=== PATIENT | male | born 1950 ===

== ENCOUNTER 2019-09-09 09:11 | Emergency (ER) | payer OTHER, MEDICARE, SELFPAY ==
[2019-09-09] VITALS (10 sets, daily range): BP systolic 132–169; BP diastolic 64–97; PULSE 52–114; RESP 12–32; TEMP 36.8; O2SAT 97–100
--- NOTE | 2019-09-09 09:24 | DI.RAD.S_ITS ---
PROCEDURE: XR CHEST 1V INDICATIONS: chest pain TECHNIQUE: One view of the chest was acquired. COMPARISON: None. FINDINGS: Surgical changes and devices: None. Lungs and pleura: Lungs are clear. No pleural effusions or pneumothorax. Mediastinum: Mediastinal contours appear normal. Heart size is normal. Bones and chest wall: No suspicious bony lesions. Overlying soft tissues appear unremarkable. IMPRESSION: No acute process. Dictated by: Luisana Whaley M.D. on 09/09/2019 at 9:01 Approved by: Luisana Whaley M.D. on 09/09/2019 at 9:02
--- NOTE | 2019-09-09 09:31 | ED_ITS ---
HPI - Arrhythmia/Palpitations General Chief Complaint: Arrhythmia/Palpitations Stated Complaint: Concerns about blood pressure,feeling light headed Time Seen by Provider: 09/09/19 09:24 Source: patient Mode of arrival: Ambulatory Limitations: no limitations History of Present Illness HPI narrative: 69-year-old male arrived to the emergency department by private vehicle for concerns not feeling very well. He states that last evening he started to feel this way. No chest pain no palpitations no shortness of breath. Did eat dinner last evening without any change in his symptoms. Went to bed last evening. Woke up this morning. States that he felt very uneasy. He used his home blood pressure cuff. He states that his systolic blood pressures were in the 80s and his heart rate was in the 160s. He was not having any palpitations or chest pain at the time. Did drive to the emergency department. While he was on the [employer] on the way to the department he stated that he became somewhat lightheaded while walking up some stairs. Upon arrival says he feels better than when he did this morning however not at his normal. Related Data Allergies Allergy/AdvReac Type Severity Reaction Status Date / Time tamsulosin AdvReac Mild Fatigued Verified 09/09/19 09:23 Review of Systems Constitutional Constitutional: Denies fever(s) and Denies headache(s) ENT Ears, Nose, Mouth, and Throat: Denies vertigo, Denies dizziness, Denies headache(s) and Reports disequilibrium Cardiovascular Cardiovascular: Denies chest pain, Denies diaphoresis, Denies syncope, Denies palpitations, Denies dyspnea and Denies dyspnea on exertion Respiratory Respiratory: Denies dyspnea and Denies dyspnea on exertion Gastrointestinal Gastrointestinal: Denies abdominal pain, Denies nausea and Denies vomiting Genitourinary Genitourinary: Denies dysuria Integumentary/Breasts Skin/Breast: Denies lesions and Denies rash Neurologic Neurologic: Denies behavioral changes, Denies confusion, Denies vertigo, Denies dizziness, Denies syncope, Denies headache(s) and Reports disequilibrium Psychiatric Psychiatric: Denies behavioral changes and Denies confusion Endocrine Endocrine: Denies palpitations Hematologic/Lymphatic Hematologic/Lymphatic: Denies easy bleeding and Denies easy bruising Patient History Medical History Class 1 obesity (06/25/15) Hyperlipidemia (06/25/15) Social History Smoking Status: Never smoker Smoking Status: Never smoker alcohol intake frequency: 0-2 drinks per day Substance Use Type: does not use Exam Initial Vital Signs Initial Vital Signs: Vital Signs Temperature 98.2 F 09/09/19 09:15 Pulse Rate 76 09/09/19 09:15 Respiratory Rate 18 09/09/19 09:15 Blood Pressure 169/77 H 09/09/19 09:15 Pulse Oximetry 100 09/09/19 09:15 Const General: cooperative, comfortable and well developed Limitations: mental status not altered HENMT Head: normal to inspection and normocephalic Resp Effort & Inspection: normal respiratory effort Auscultation: clear to auscultation bilaterally Cardio Rate: regular rate Rhythm: regular rhythm GI Inspection: non-distended Palpation: soft and No firm Skin Lesions: no lesions Rashes: no rashes Neuro General: alert, awake and oriented x3 Cognition: normal cognition Speech: speech normal Extrem General: normal to inspection and capillary refill normal Psych Appearance: grossly normal and well kempt Scores GCS Al coma scale eye opening: Spontaneous Al coma scale verbal response: Orientated Al coma scale motor response: Obey commands Al coma scale total score: 15 Course Orders Ordered: ED Orders 09/09/19 09:24 XR chest 1V Stat EKG-12 Lead Stat 09/09/19 09:25 Complete Blood Count AUTO DIFF Stat Comprehensive Metabolic Panel Stat Lipase Stat Partial Thromboplastin Time Stat Prothrombin Time INR Stat Troponin & CK Cardiac Panel Stat 09/09/19 11:40 Troponin I Stat Heparin Sodium/Dextrose (Heparin Drip) 25,000 unit in 500 mls @ 20 mls/hr IV CONT SHILO; Protocol Discontinued Medications Aspirin (Aspirin Chew) 324 mg PO NOW ONE Stop: 09/09/19 10:51 Last Admin: 09/09/19 11:02 Dose: 243 mg Documented by: DAGO Heparin Sodium (Porcine) (Heparin) 5,000 unit IV NOW ONE Stop: 09/09/19 12:24 Vital Signs Vital signs: Vital Signs - 8 hr 09/09/19 09:15 09/09/19 09:30 09/09/19 11:30 Temperature 98.2 F Pulse Rate 76 68 53 L Respiratory Rate 18 18 17 Blood Pressure 169/77 H Blood Pressure [Right Arm] 155/65 H 137/65 Pulse Oximetry 100 99 MDM - Arrhythmia/Palpitations Lab Data Attestation: I reviewed the patient's lab results. Result diagrams: 09/09/19 09:25 09/09/19 09:25 Labs: Lab Results 09/09/19 09/09/19 09/09/19 Range/Units 09:25 09:25 09:25 WBC 7.1 (4.5-11.0) X10^3/uL RBC 4.89 (4.5-5.9) X10^6/uL Hgb 15.4 (13.5-17.5) g/dL Hct 46.1 (41-53) % MCV 94.3 (80-100) fL MCH 31.4 (26-34) PG MCHC 33.3 (30-36) % RDW 14.4 (11.6-14.8) % Plt Count 254 (150-400) X10^3/uL Neut % (Auto) 75.7 H (50-75) % Lymph % (Auto) 14.2 L (25-40) % Stephens % (Auto) 9.5 (3-14) % Eos % (Auto) 0.4 L (2-4) % Baso % (Auto) 0.2 (0-2) % Neut # (Auto) 5300 (9098-9531) /uL Lymph # (Auto) 1000 L (6071-2440) /uL Stephens # (Auto) 700 (0-900) /uL Eos # (Auto) 0 (0-450) /uL Baso # (Auto) 0 (0-100) /uL PT 11.8 (10.1-12.7) SECONDS INR 1.0 (0.9-1.3) APTT 33 (26.4-36.2) SECONDS Sodium 139 (137-145) mmol/L Potassium 4.4 (3.4-5.1) mmol/L Chloride 103 (98-107) mmol/L Carbon Dioxide 25 (22-32) mmol/L BUN 12 (9-20) mg/dL Creatinine 1.10 (0.66-1.25) mg/dL Estimated GFR > 60.0 (>60) mL/min BUN/Creatinine Ratio 10.9 (6-22) Glucose 105 (80-110) mg/dL Calcium 9.7 (8.4-10.2) mg/dL Total Bilirubin 0.9 (0.2-1.3) mg/dL AST 29 (17-59) IU/L ALT 27 (<50) IU/L Alkaline Phosphatase 70 (38-126) U/L Total Creatine Kinase 104 (55-170) U/L CK-MB (CK-2) 0.75 (<2.37) ng/mL CK-MB (CK-2) Rel Index 0.7 L (1.5-5.0) % Troponin I 0.030 (0.01-0.034) ng/mL Total Protein 8.4 H (6.3-8.2) g/dL Albumin 4.7 (3.5-5.0) g/dL Globulin 3.7 (1.7-4.1) g/dL Albumin/Globulin Ratio 1.3 (1.0-2.8) Lipase 79 (23-300) U/L 09/09/19 Range/Units 11:40 WBC (4.5-11.0) X10^3/uL RBC (4.5-5.9) X10^6/uL Hgb (13.5-17.5) g/dL Hct (41-53) % MCV (80-100) fL MCH (26-34) PG MCHC (30-36) % RDW (11.6-14.8) % Plt Count (150-400) X10^3/uL Neut % (Auto) (50-75) % Lymph % (Auto) (25-40) % Stephens % (Auto) (3-14) % Eos % (Auto) (2-4) % Baso % (Auto) (0-2) % Neut # (Auto) (9412-4419) /uL Lymph # (Auto) (8668-2551) /uL Stephens # (Auto) (0-900) /uL Eos # (Auto) (0-450) /uL Baso # (Auto) (0-100) /uL PT (10.1-12.7) SECONDS INR (0.9-1.3) APTT (26.4-36.2) SECONDS Sodium (137-145) mmol/L Potassium (3.4-5.1) mmol/L Chloride (98-107) mmol/L Carbon Dioxide (22-32) mmol/L BUN (9-20) mg/dL Creatinine (0.66-1.25) mg/dL Estimated GFR (>60) mL/min BUN/Creatinine Ratio (6-22) Glucose (80-110) mg/dL Calcium (8.4-10.2) mg/dL Total Bilirubin (0.2-1.3) mg/dL AST (17-59) IU/L ALT (<50) IU/L Alkaline Phosphatase (38-126) U/L Total Creatine Kinase (55-170) U/L CK-MB (CK-2) (<2.37) ng/mL CK-MB (CK-2) Rel Index (1.5-5.0) % Troponin I 0.047 H (0.01-0.034) ng/mL Total Protein (6.3-8.2) g/dL Albumin (3.5-5.0) g/dL Globulin (1.7-4.1) g/dL Albumin/Globulin Ratio (1.0-2.8) Lipase (23-300) U/L Imaging Data Chest x-ray: Radiologist's Impresson: [place] [address] XRay Report Signed Patient: Colleen Cunningham#: [id number] : 9Acct:[id number] Age/Sex: 69 / MDate of Service: 09/09/19 Loc: ED Accession Number: [id number] Procedure: XR chest 1V Ordering Provider: Shakeel Gasca D.O. PROCEDURE: XR CHEST 1V INDICATIONS: chest pain TECHNIQUE: One view of the chest was acquired. COMPARISON: None. FINDINGS: Surgical changes and devices: None. Lungs and pleura: Lungs are clear. No pleural effusions or pneumothorax. Mediastinum: Mediastinal contours appear normal. Heart size is normal. Bones and chest wall: No suspicious bony lesions. Overlying soft tissues appear unremarkable. IMPRESSION: No acute process. Dictated by: Luisana Whaley M.D. on 09/09/2019 at 9:01 Approved by: Luisana Whaley M.D. on 09/09/2019 at 9:02 ECG Data Attestation: I personally reviewed and interpreted this ECG as follows: Prior ECG tracings: not available for review Interpretation: Sinus rhythm Ventricular rate is 73 Occasional PACs Normal QRS Normal QTC No ST T wave changes MDM Narrative Medical decision making narrative: Patient has been in sinus rhythm since arrival to the emergency department. His blood pressure is also unremarkable. Has generalized fatigue and not feeling well. Not in atrial fibrillation. Chest x-ray is unremarkable. Initial EKG unremarkable. Initial troponin detectable but negative. 2 hour repeat positive. Patient has been given aspirin. Heparin started. Discussed the case with Dr. Washburn with cardiology at [facility] who agrees to see the patient upon transfer. Discussed case with Dr. Ballard with Internal Medicine who accepts the patient in transfer. Patient is stable for transport. I did discuss with him the expressed understanding and agreement Discharge Plan Departure Patient Disposition: [facility] Clinical Impression: Non-ST elevation [place] (NSTEMI)
[2019-09-09 09:34] LABS: Add Manual Diff / Slide Review NO; Basophils Absolute Auto 0 /uL (0-100); Basophils Percent Auto 0.2 % (0-2); Eosinophils Absolute Auto 0 /uL (0-450); Eosinophils Percent Auto 0.4 % (2-4); Hematocrit 46.1 % (41-53); Hemoglobin 15.4 g/dL (13.5-17.5); Lymphocytes Absolute Auto 1000 /uL (1100-4500); Lymphocytes Percent Auto 14.2 % (25-40); Mean Corpuscular HGB Conc 33.3 % (30-36); Mean Corpuscular Hemoglobin 31.4 PG (26-34); Mean Corpuscular Volume 94.3 fL (80-100); Monocytes Absolute Auto 700 /uL (0-900); Monocytes Percent Auto 9.5 % (3-14); Neutrophils Absolute Auto 5300 /uL (1500-7000); Neutrophils Percent Auto 75.7 % (50-75); Platelet Count 254 X10^3/uL (150-400); Red Blood Cell Count 4.89 X10^6/uL (4.5-5.9); Red Cell Distribution Width 14.4 % (11.6-14.8); White Blood Cell Count 7.1 X10^3/uL (4.5-11.0)
[2019-09-09 09:43] LABS: PTT Partial Thromboplastin Tim 33 SECONDS (26.4-36.2)
[2019-09-09 09:44] LABS: Alanine Aminotransferase 27 IU/L (<50); Albumin 4.7 g/dL (3.5-5.0); Albumin Globulin Ratio 1.3 (1.0-2.8); Alkaline Phosphatase 70 U/L (38-126); Aspartate Aminotransferase 29 IU/L (17-59); BUN Creatinine Ratio 10.9 (6-22); Bilirubin Total 0.9 mg/dL (0.2-1.3); Blood Urea Nitrogen 12 mg/dL (9-20); Calcium 9.7 mg/dL (8.4-10.2); Carbon Dioxide 25 mmol/L (22-32); Chloride 103 mmol/L (98-107); Creatine Kinase 104 U/L (55-170); Estimated Glomerular Filt Rate > 60.0 mL/min (>60); Globulin 3.7 g/dL (1.7-4.1); Glucose 105 mg/dL (80-110); Lipase 79 U/L (23-300); Potassium 4.4 mmol/L (3.4-5.1); Prothrombin Time 11.8 SECONDS (10.1-12.7); Sodium 139 mmol/L (137-145); Total Protein 8.4 g/dL (6.3-8.2)
--- NOTE | 2019-09-09 09:44 | PC.NURSE ---
Pt shows me home bp monitor w/ multiple low bps (80s-90s systolic) and high heart rate (160s). Pt states during that time he felt funny Pt did take his bp medication this morning. States he feels well at this time. Upon arrival and placed on monitor, pt appeared to be in afib w/ controlled rate. Is now in NSR w/o ectopy.
[2019-09-09 09:59] LABS: CKMB % Relative Index 0.7 % (1.5-5.0); Creatine Kinase MB 0.75 ng/mL (<2.37)
[2019-09-09 10:00] LABS: HEMOLYSIS 51 (0-50)
[2019-09-09] MEDS: ASPIRIN 81 MG CHEW TAB 324 MG PO (11:02)
[2019-09-09 12:09] LABS: Troponin I 0.047 ng/mL (0.01-0.034)
[2019-09-09] MEDS: HEPARIN 5,000 UNIT/ML VIAL 5000 UNIT IV (13:04)
[2019-09-09] MEDS: HEPARIN DRIP 25,000 UNIT/500 ML IV.SOLN 20 UNIT IV (13:05)
--- NOTE | 2019-09-09 13:16 | PC.NURSE ---
Assisted pt to car per Dr. Gasca's approval for pt to retrieve personal items from car. While up pt used restroom. Security also aware that pt's car will be parked in the parking lot while he is transferred to [facility].
== END 2019-09-09 15:32 | disposition short-term general hospital (02) ==
PROVIDERS: Emergency Provider Emergency Medicine
DX: I21.4 Non-ST elevation (NSTEMI) myocardial infarction (principal); R07.9 Chest pain, unspecified
CPT/HCPCS: 36415; 71045; 80053; 82550; 82553; 83690; 84484; 85025; 85610; 85730; 93005; 96365; 96366; 96375; 99285; J1644